=== PATIENT | female | born 1990 | race Caucasian/White ===

== ENCOUNTER 2017-11-21 05:58 | Emergency (ER) | payer MEDICAID, MEDICARE ==
--- NOTE | 2017-11-21 06:15 | ED PDOC ---
HPI: Seizure Time Seen by Provider: 11/21/17 06:13 Chief Complaint (Nursing): Seizure History Per: Patient, Family Recent Seizure Activity Began: Just Before Arrival Number Of Seizures: One Length Of Seizures (Duration): Seconds Additional History Per: Patient Additional Complaint(s): Patient has history of autism and seizure disorder on keppra 500mg BID and valium PRN, mother states she is compliant with medication, states that she has not had seizure since 2012. States she heard her daughter screaming from the room, noticed her head was turned and she was having jerking motions that appeared to be seizure like activity. Denies recent illnesses, fever, stress, or other potential inciting factors. PMD: Akash Esteban Neurologist: Harmony Mondragon Past Medical History Reviewed: Historical Data, Nursing Documentation, Vital Signs Vital Signs: Last Vital Signs Temp 99.0 F 11/21/17 06:09 Pulse 143 H 11/21/17 06:09 Resp 18 11/21/17 06:09 BP 126/83 11/21/17 06:09 Pulse Ox 98 11/21/17 06:21 - Medical History PMH: Seizures - Family History Family History: States: Unknown Family Hx - Immunization History Hx Tetanus Toxoid Vaccination: Yes Hx Influenza Vaccination: Yes Hx Pneumococcal Vaccination: Yes - Home Medications Home Medications: Ambulatory Orders Medication Instructions Recorded Levetiracetam 10/26/13 Valium 10/26/13 - Allergies Allergies/Adverse Reactions: Allergies Allergy/AdvReac Type Severity Reaction Status Date / Time No Known Allergies Allergy Unverified 10/26/13 09:29 Review of Systems Review Of Systems: ROS cannot be obtained secondary to pt's inabilty to answer questions. Physical Exam - Reviewed Nursing Documentation Reviewed: Yes Vital Signs Reviewed: Yes - Physical Exam Appears: Positive for: Well, Non-toxic, No Acute Distress Head Exam: Positive for: ATRAUMATIC, NORMAL INSPECTION, NORMOCEPHALIC Skin: Positive for: Normal Color, Warm, DRY Eye Exam: Positive for: EOMI, Normal appearance, PERRL ENT: Positive for: Normal ENT Inspection Neck: Positive for: Normal, Painless ROM Cardiovascular/Chest: Positive for: Regular Rate, Rhythm Respiratory: Positive for: CNT, Normal Breath Sounds Gastrointestinal/Abdominal: Positive for: Normal Exam, Soft Back: Positive for: Normal Inspection Extremity: Positive for: Normal ROM Neurologic/Psych: Positive for: Alert, cable systems installer II-XII, Oriented, Mood/Affect ( withdrawn, reserved, chornic as patient is autistic), Gait (normal). Negative for: Motor/Sensory Deficits, Aphasia, Facial Droop - Laboratory Results Result Diagrams: 11/21/17 06:28 11/21/17 06:28 - ECG O2 Sat by Pulse Oximetry: 98 Pulse Ox Interpretation: Normal Medical Decision Making Medical Decision MakinAM A/P: Hx of autism and seizure disorder presenting with seizure -unknown inciting factor, will draw keppra level to assess for therapeutic or subtherapeutic level -will check other labs, monitor patient -patient currently not post-ictal, well appearing -EKG shows sinus tachycarida 7AM Will endorse case to Dr. Bravo pending workup and re-eval Disposition - Clinical Impression Clinical Impression: Seizure disorder - Patient ED Disposition Is Patient to be Admitted: Transfer of Care - Disposition Referrals: Harmony Mondragon MD [Medical Doctor] - Disposition: Transfer of Care Disposition Time: 07:00 Condition: STABLE Forms: [employer] (Italian) Patient Signed Over To: Sharath Bravo III Handoff Comments: pending completion of workup and re-eval
[2017-11-21 06:38] LABS: BASO # 0.1 K/uL (0.0-0.2); BASO % 0.7 % (0.0-2.0); EOS % 0.2 % (0.0-4.0); HEMOGLOBIN 13.8 g/dL (12.0-16.0); LYMPH # 2.3 K/uL (1.0-4.3); LYMPH % 27.5 % (20.0-40.0); MEAN CELL VOLUME 98.7 fl (81.0-99.0); MEAN CORPUSCULAR HGB CONC 33.5 g/dL (33.0-37.0); MEAN PLATELET VOLUME 10.7 fl (7.2-11.7); MONO # 0.3 K/uL (0.0-0.8); MONO % 3.2 % (0.0-10.0); NEUT # 5.6 K/uL (1.8-7.0); NEUT % 68.4 % (50.0-75.0); NRBC % 0.1 % (0.0-0.0); RBC 4.17 Mil/uL (3.80-5.20); RED CELL DISTRIBUTION WIDTH 12.5 % (11.5-14.5); WHITE BLOOD COUNT 8.2 K/uL (4.8-10.8)
[2017-11-21 06:39] LABS: BLOOD UREA NITROGEN 13 mg/dl (7-17); CALCIUM 8.9 mg/dL (8.4-10.2); GFR AFRICAN-AMERICAN > 60; GFR NON-AFRICAN AMERICAN > 60
[2017-11-21] MEDS ORDERED: Sodium Chloride 0.9% 1,000 ML IV STA (06:41)
[2017-11-21 06:53] VITALS: O2SAT 100
--- NOTE | 2017-11-21 07:06 | ED PDOC ---
- Laboratory Results Result Diagrams: 11/21/17 06:28 11/21/17 06:28 - ECG O2 Sat by Pulse Oximetry: 100 (RA) Pulse Ox Interpretation: Normal <Dalton Anna - Last Filed: 11/21/17 07:03> - Laboratory Results Result Diagrams: 11/21/17 06:28 11/21/17 06:28 <Sharath Bravo III - Last Filed: 11/21/17 12:38> Medical Decision Making <Dalton Anna - Last Filed: 11/21/17 07:03> <Sharath Bravo III - Last Filed: 11/21/17 12:38> Medical Decision Making: Time: 7:00 Patient signed out to Dr. Bravo pending reevaluation after 1 hour for seizure activity. Scribe Attestation: Documented by Chata Gomez, acting as a scribe for Dalton Anna MD Provider Scribe Attestation: All medical record entries made by the Scribe were at my direction and personally dictated by me. I have reviewed the chart and agree that the record accurately reflects my personal performance of the history, physical exam, medical decision making, and the department course for this patient. I have also personally directed, reviewed, and agree with the discharge instructions and disposition. (Dalton Anna) discussed w Dr Dailey neurology, rec increasing keppra to 750mg BID Small UTI evident UDip, Rx course macrobid as possible UTI incited seizure Monitored 5+ hrs without further seizure. Stable for DC home. (Sharath Bravo III) Disposition <Dalton Anna - Last Filed: 11/21/17 07:03> - POA Present On Arrival: None - Disposition Disposition: Routine/Home Disposition Time: 10:30 <Sharath Bravo III - Last Filed: 11/21/17 12:38> - Clinical Impression Clinical Impression: Seizure disorder, UTI (urinary tract infection) - Disposition Referrals: Harmony Mondragon MD [Medical Doctor] - Condition: STABLE Additional Instructions: Increase keppra dose to 750mg 2x daily See Dr Dailey in 10 days for re-evaluation. Prescriptions: Levetiracetam [Keppra] 750 mg PO BID #30 tablet Nitrofurantoin Macrocrystals [Macrobid] 100 mg PO BID #14 cap Instructions: Urinary Tract Infections in Adults, Epilepsy in Adults Forms: [facility] (Kyrgyz) Print Language: KITTITIAN
[2017-11-21 09:54] VITALS: RESP 16
[2017-11-21 10:32] LABS: SQUAMOUS EPITHIAL 2 /hpf (0-5); URINE BACTERIA RARE (<OCC); URINE BILIRUBIN NEGATIVE (NEGATIVE); URINE BLOOD NEGATIVE (NEGATIVE); URINE CLARITY CLOUDY (Clear); URINE COLOR YELLOW (YELLOW); URINE GLUCOSE (UA) NEG (Normal); URINE LEUKOCYTE ESTERASE MOD Leu/uL (Negative); URINE PROTEIN 30 mg/dL (NEGATIVE); URINE UROBILINOGEN 0.2-1.0 mg/dL (0.2-1.0)
--- NOTE | 2017-11-21 10:42 | ED PDOC ---
- Laboratory Results Result Diagrams: 11/21/17 06:28 11/21/17 06:28 - ECG O2 Sat by Pulse Oximetry: 100 (RA) Pulse Ox Interpretation: Normal Medical Decision Making Medical Decision Making: Time: 7:00 Patient signed out to me by Dr. Anna pending observation and reevaluation s/p seizure activity. 10:43 Patient has been observed for 4.5 hours with no further seizure activity noted in ED. Case discussed with her neurologist Dr. Dailey who recommends increasing Keppra to 750 BIB. Patient instructed to follow up approximately 10 days later to draw a level. Scribe Attestation: Documented by Chata Gomez, acting as a scribe for Sharath Bravo DO. Provider Scribe Attestation: All medical record entries made by the Scribe were at my direction and personally dictated by me. I have reviewed the chart and agree that the record accurately reflects my personal performance of the history, physical exam, medical decision making, and the department course for this patient. I have also personally directed, reviewed, and agree with the discharge instructions and disposition. Disposition - Clinical Impression Clinical Impression: Seizure disorder - Disposition Referrals: Harmony Mondragon MD [Medical Doctor] - Condition: STABLE Additional Instructions: Increase keppra dose to 750mg 2x daily See Dr Dailey in 10 days for re-evaluation. Prescriptions: Levetiracetam [Keppra] 750 mg PO BID #30 tablet Instructions: Epilepsy in Adults Forms: [employer] (Iraqi)
[2017-11-21 12:00] VITALS: BP 114/74; PULSE 86; TEMP 982
--- NOTE | 2017-11-22 13:08 | CARD ---
APPROVED REPORT EKG Measurement Heart [id number] <Conclusion> Sinus tachycardia Nonspecific ST abnormality Abnormal ECG
== END 2017-11-21 11:30 | disposition home or self-care (01) ==
LOC: H.ER 05:58
DX: G40.909 Epilepsy, unspecified, not intractable, without status epilepticus (principal); N39.0 Urinary tract infection, site not specified
CPT/HCPCS: 80048; 80299; 81003; 83605; 85025; 93005; 99285; J7040